=== PATIENT | female | born 1940 ===

== ENCOUNTER 2024-01-19 09:08 | Observation (INO) | payer MEDICARE, OTHER ==
[2024-01-19 09:20] VITALS: BMI 39.0
[2024-01-19 10:47] LABS: BASO % 0.9 % (0-2.0); EOS % 2.2 % (0-4.5); HEMATOCRIT 36.8 % (32.4-45.2); HEMOGLOBIN 11.8 GM/dL (10.7-15.3); LYMPH % 20.2 % (8-40); MCH 26.5 pg (25.7-33.7); MCHC 32.1 g/dl (32.0-36.0); MEAN CELL VOLUME 82.5 fl (80-96); MEAN PLT VOLUME 7.4 fl (7.5-11.1); MONO % 6.4 % (3.8-10.2); NEUT % 70.3 % (42.8-82.8); PLATELET COUNT 506 10^3/uL (134-434); RBC 4.46 M/mm3 (3.60-5.2); RDW 16.3 % (11.6-15.6); WHITE BLOOD COUNT 12.5 K/mm3 (4.0-10.0)
[2024-01-19 10:52] LABS: INR 1.06 (0.83-1.09)
[2024-01-19 10:55] LABS: ACTIVATED PTT 34.1 SECONDS (25.2-36.5)
[2024-01-19 11:10] LABS: ALBUMIN 3.3 g/dl (3.4-5.0); BLOOD UREA NITROGEN 13.7 mg/dL (7-18)
[2024-01-19 11:13] LABS: CREATININE 0.7 mg/dL (0.55-1.3)
[2024-01-19 11:16] LABS: BILIRUBIN,TOTAL 0.4 mg/dL (0.2-1); TOT PROT 7.7 g/dl (6.4-8.2)
[2024-01-19 11:26] LABS: EPI CELLS >36 /uL (0-25.1); HYALINE CASTS 1 /uL (0-3.1); PH,URINE 7.5 (5.0-8.0); URINE APPEARANCE CLOUDY; URINE BACTERIA 477 /uL (0-1359); URINE BILIRUBIN NEGATIVE (NEGATIVE); URINE COLOR YELLOW; URINE GLUCOSE (UA) NEGATIVE (NEGATIVE); URINE KETONE NEGATIVE (NEGATIVE); URINE LEUK ESTERASE TRACE (NEGATIVE); URINE NITRITE NEGATIVE (NEGATIVE); URINE PROTEIN NEGATIVE (NEGATIVE); URINE UROBILINOGEN 0.2 mg/dL (0.2-1.0); URINE WBC 32 /uL (0-25.8)
[2024-01-19 11:28] LABS: URINE RBC 22.3 /uL (0-23.9)
[2024-01-19] MEDS ORDERED: ACETAMINOPHEN 325 MG TABLET (FP) PO PRN (13:11)
[2024-01-19] MEDS ORDERED: CEFTRIAXONE 1 GM/50 ML BAG ONE (13:47)
[2024-01-19] MEDS: CEFTRIAXONE 1 GM in DEXTROSE 5%-WATER - 50 ML IVPB SCH (13:54)
[2024-01-19] MEDS: MEMANTINE HCL 5 MG TABLET (UD) PO SCH (21:37)
[2024-01-19] MEDS: DONEPEZIL HCL 5 MG TABLET (FP) PO SCH (21:37)
[2024-01-19] MEDS: ATORVASTATIN CA 10 MG TABLET (FP) PO SCH (21:37)
[2024-01-19] MEDS: HEPARIN NA (PORCINE) 5,000 UNITS/ML 1ML VIAL SQ SCH (21:37)
[2024-01-20 08:24] LABS: POTASSIUM 4.1 mmol/L (3.5-5.1)
[2024-01-20 08:27] LABS: CALCIUM 8.6 mg/dL (8.5-10.1)
[2024-01-20 08:28] LABS: BLOOD UREA NITROGEN 8.9 mg/dL (7-18)
[2024-01-20 08:30] LABS: CREATININE 0.6 mg/dL (0.55-1.3)
[2024-01-20 08:32] LABS: BILIRUBIN,TOTAL 0.4 mg/dL (0.2-1)
[2024-01-20 08:35] LABS: BASO % 0.7 % (0-2.0); EOS % 2.4 % (0-4.5); HEMATOCRIT 35.8 % (32.4-45.2); HEMOGLOBIN 11.6 GM/dL (10.7-15.3); LYMPH % 14.7 % (8-40); MCH 26.7 pg (25.7-33.7); MCHC 32.4 g/dl (32.0-36.0); MEAN CELL VOLUME 82.4 fl (80-96); MEAN PLT VOLUME 7.7 fl (7.5-11.1); MONO % 5.4 % (3.8-10.2); NEUT % 76.8 % (42.8-82.8); PLATELET COUNT 489 10^3/uL (134-434); RBC 4.34 M/mm3 (3.60-5.2); RDW 15.4 % (11.6-15.6); WHITE BLOOD COUNT 11.4 K/mm3 (4.0-10.0)
[2024-01-20] MEDS ORDERED: ACETAMINOPHEN 325 MG TABLET (FP) PO PRN (08:41)
[2024-01-20] MEDS: ESCITALOPRAM OXALATE 10 MG TABLET PO SCH (10:25)
[2024-01-20] MEDS: CHOLECALCIFEROL (VIT D3) 1,000 UNIT (25 MCG) TABLET PO SCH (10:25)
[2024-01-20] MEDS: CALCIUM 500MG/VIT-D 200 UNITS COMBO TABLET (FP) PO SCH (10:25)
[2024-01-20] MEDS: PANTOPRAZOLE 40 MG TABLET PO SCH (10:25)
[2024-01-20] MEDS: LOSARTAN POTASSIUM 50 MG TABLET PO SCH (10:25)
[2024-01-20] MEDS: VENLAFAXINE HCL 37.5 MG E.R. CAPSULE PO SCH (10:26)
[2024-01-20] MEDS: MELATONIN 5 MG TABLETS PO PRN (21:30)
[2024-01-23 08:02] LABS: HEMATOCRIT 36.7 % (32.4-45.2); HEMOGLOBIN 12.1 GM/dL (10.7-15.3); MCH 27.4 pg (25.7-33.7); MEAN CELL VOLUME 83.2 fl (80-96); MEAN PLT VOLUME 7.6 fl (7.5-11.1); PLATELET COUNT 452 10^3/uL (134-434); RBC 4.41 M/mm3 (3.60-5.2); RDW 15.7 % (11.6-15.6); WHITE BLOOD COUNT 16.3 K/mm3 (4.0-10.0)
[2024-01-23 08:14] LABS: POTASSIUM 4.2 mmol/L (3.5-5.1)
[2024-01-23 08:15] LABS: CALCIUM 9.2 mg/dL (8.5-10.1)
[2024-01-23 08:16] LABS: BLOOD UREA NITROGEN 18.3 mg/dL (7-18); MAGNESIUM 2.2 mg/dL (1.8-2.4)
[2024-01-23 08:19] LABS: CREATININE 0.7 mg/dL (0.55-1.3); PHOSPHOROUS 4.2 mg/dL (2.5-4.9)
[2024-01-23] MEDS ORDERED: cefTRIAXone SODIUM 1 GM VIAL ONE (09:26)
[2024-01-24 10:54] LABS: BASO % 0.3 % (0-2.0); EOS % 1.1 % (0-4.5); HEMATOCRIT 36.5 % (32.4-45.2); HEMOGLOBIN 11.9 GM/dL (10.7-15.3); LYMPH % 17.5 % (8-40); MCHC 32.7 g/dl (32.0-36.0); MEAN CELL VOLUME 82.7 fl (80-96); MEAN PLT VOLUME 7.6 fl (7.5-11.1); NEUT % 71.1 % (42.8-82.8); PLATELET COUNT 481 10^3/uL (134-434); RBC 4.41 M/mm3 (3.60-5.2); RDW 15.5 % (11.6-15.6); WHITE BLOOD COUNT 16.1 K/mm3 (4.0-10.0)
[2024-01-24 17:14] LABS: HIV INTERPRETATION NEGATIVE (NEGATIVE)
[2024-01-24] MEDS: NYSTATIN POWDER 100,000 UNITS/GM - 15 GM TOPICAL POWDER TP SCH (22:00)
[2024-01-25 06:36] LABS: BASO % 0.6 % (0-2.0); EOS % 1.9 % (0-4.5); HEMOGLOBIN 11.4 GM/dL (10.7-15.3); LYMPH % 16.1 % (8-40); MCH 27.1 pg (25.7-33.7); MCHC 32.5 g/dl (32.0-36.0); MEAN CELL VOLUME 83.5 fl (80-96); MEAN PLT VOLUME 7.6 fl (7.5-11.1); MONO % 9.8 % (3.8-10.2); NEUT % 71.6 % (42.8-82.8); PLATELET COUNT 455 10^3/uL (134-434); RBC 4.19 M/mm3 (3.60-5.2); RDW 15.3 % (11.6-15.6); WHITE BLOOD COUNT 14.5 K/mm3 (4.0-10.0)
[2024-01-25 06:52] LABS: POTASSIUM 3.8 mmol/L (3.5-5.1)
[2024-01-25 06:56] LABS: BLOOD UREA NITROGEN 15.5 mg/dL (7-18); CALCIUM 8.8 mg/dL (8.5-10.1)
[2024-01-25 06:57] LABS: MAGNESIUM 2.1 mg/dL (1.8-2.4)
[2024-01-25 07:00] LABS: CREATININE 0.7 mg/dL (0.55-1.3); PHOSPHOROUS 3.6 mg/dL (2.5-4.9)
[2024-01-25 07:01] LABS: BILIRUBIN,TOTAL 0.5 mg/dL (0.2-1)
[2024-01-25] MEDS ORDERED: ACETAMINOPHEN 325 MG TABLET (FP) PO PRN (16:53)
[2024-01-25] MEDS: DONEPEZIL HCL 5 MG TABLET (FP) PO SCH (21:22)
[2024-01-25] MEDS: MEMANTINE HCL 5 MG TABLET (UD) PO SCH (21:22)
[2024-01-25] MEDS: ATORVASTATIN CA 10 MG TABLET (FP) PO SCH (21:23)
[2024-01-25] MEDS: NYSTATIN POWDER 100,000 UNITS/GM - 15 GM TOPICAL POWDER TP SCH (21:23)
[2024-01-25] MEDS: MELATONIN 5 MG TABLETS PO PRN (21:23)
[2024-01-25] MEDS: HEPARIN NA (PORCINE) 5,000 UNITS/ML 1ML VIAL SQ SCH (21:23)
[2024-01-25 21:50] LABS: MAGNESIUM 2.2 mg/dL (1.8-2.4)
[2024-01-25 21:54] LABS: PHOSPHOROUS 3.3 mg/dL (2.5-4.9)
[2024-01-26 08:37] LABS: BASO % 0.6 % (0-2.0); EOS % 1.7 % (0-4.5); HEMATOCRIT 34.8 % (32.4-45.2); HEMOGLOBIN 11.1 GM/dL (10.7-15.3); LYMPH % 18.1 % (8-40); MCH 26.5 pg (25.7-33.7); MCHC 31.9 g/dl (32.0-36.0); MEAN CELL VOLUME 82.9 fl (80-96); MEAN PLT VOLUME 7.8 fl (7.5-11.1); MONO % 8.8 % (3.8-10.2); NEUT % 70.8 % (42.8-82.8); PLATELET COUNT 446 10^3/uL (134-434); RDW 15.5 % (11.6-15.6); WHITE BLOOD COUNT 12.9 K/mm3 (4.0-10.0)
[2024-01-26 08:51] LABS: POTASSIUM 4.1 mmol/L (3.5-5.1)
[2024-01-26 08:57] LABS: ALBUMIN 2.8 g/dl (3.4-5.0); CALCIUM 8.8 mg/dL (8.5-10.1)
[2024-01-26 09:00] LABS: CREATININE 0.7 mg/dL (0.55-1.3)
[2024-01-26 09:02] LABS: BILIRUBIN,TOTAL 0.4 mg/dL (0.2-1); TOT PROT 6.9 g/dl (6.4-8.2)
[2024-01-26] MEDS: ESCITALOPRAM OXALATE 10 MG TABLET PO SCH (10:33)
[2024-01-26] MEDS: VENLAFAXINE HCL 37.5 MG E.R. CAPSULE PO SCH (10:34)
[2024-01-26] MEDS: CHOLECALCIFEROL (VIT D3) 1,000 UNIT (25 MCG) TABLET PO SCH (10:34)
[2024-01-26] MEDS: LOSARTAN POTASSIUM 50 MG TABLET PO SCH (10:34)
[2024-01-26] MEDS: CALCIUM 500MG/VIT-D 200 UNITS COMBO TABLET (FP) PO SCH (10:34)
[2024-01-26] MEDS: PANTOPRAZOLE 40 MG TABLET PO SCH (10:34)
[2024-01-27 06:28] VITALS: RESP 18
[2024-01-27 09:50] LABS: EOS % 2.8 % (0-4.5); HEMATOCRIT 32.5 % (32.4-45.2); HEMOGLOBIN 10.5 GM/dL (10.7-15.3); LYMPH % 22.3 % (8-40); MCH 26.9 pg (25.7-33.7); MCHC 32.4 g/dl (32.0-36.0); MEAN CELL VOLUME 83.2 fl (80-96); MEAN PLT VOLUME 7.8 fl (7.5-11.1); MONO % 8.2 % (3.8-10.2); NEUT % 65.7 % (42.8-82.8); PLATELET COUNT 486 10^3/uL (134-434); RBC 3.91 M/mm3 (3.60-5.2); RDW 15.4 % (11.6-15.6); WHITE BLOOD COUNT 12.7 K/mm3 (4.0-10.0)
[2024-01-27 10:33] LABS: POTASSIUM 4.1 mmol/L (3.5-5.1)
[2024-01-27 10:40] LABS: ALBUMIN 2.7 g/dl (3.4-5.0); CALCIUM 8.6 mg/dL (8.5-10.1)
[2024-01-27 10:43] LABS: CREATININE 0.6 mg/dL (0.55-1.3)
[2024-01-27 10:45] LABS: BILIRUBIN,TOTAL 0.3 mg/dL (0.2-1); TOT PROT 6.8 g/dl (6.4-8.2)
[2024-01-27] MEDS: ENOXAPARIN NA (PORCINE) 40 MG/0.4 ML DISP.SYRIN SQ SCH (11:09)
[2024-01-27 17:46] VITALS: BP 121/64; PULSE 78; TEMP 99.3
== END 2024-01-27 17:43 ==
LOC: JER 09:08 → JERBED 12:02 → J4S 15:26 → J5S 01-25 16:50
PROVIDERS: ADMIT Internal Medicine
PROC: 0T9B70Z Drainage of Bladder with Drainage Device, Via Natural or Artificial Opening (ICD-10-PCS; principal; 2024-01-19)
PROC: 3E03329 Introduction of Other Anti-infective into Peripheral Vein, Percutaneous Approach (ICD-10-PCS; 2024-01-19)
PROC: 3E023GC Introduction of Other Therapeutic Substance into Muscle, Percutaneous Approach (ICD-10-PCS; 2024-01-19)
DX: N39.0 Urinary tract infection, site not specified (principal); R33.9 Retention of urine, unspecified; G93.41 Metabolic encephalopathy; R00.1 Bradycardia, unspecified; F03.C0 Unspecified dementia, severe, without behavioral disturbance, psychotic disturbance, mood disturbance, and anxiety; X58.XXXA Exposure to other specified factors, initial encounter; Y93.89 Activity, other specified; Y92.098 Other place in other non-institutional residence as the place of occurrence of the external cause; I10 Essential (primary) hypertension; E78.5 Hyperlipidemia, unspecified; N63.10 Unspecified lump in the right breast, unspecified quadrant; F32.A Depression, unspecified
CPT/HCPCS: 0241U-QW; 36415; 51702; 70450-TC; 71045-TC-FY; 76775-TC; 80048; 80053; 81003; 82550; 82962; 83735; 84100; 84443; 84484; 85025; 85027; 85610; 85730; 86705; 86707; 86803; 86850; 86900; 86901; 87040; 87086; 87340; 87350; 87389; 87517; 93005; 93010; 93306-TC; 93880-TC; 95816; 96365; 96366; 97116-GP; 97161-GP; 99285-25; G0378; J1644

== ENCOUNTER 2024-04-13 14:59 | Observation (INO) | payer OTHER ==
[2024-04-13 17:50] LABS: BASO % 0.7 % (0-2.0); EOS % 0.6 % (0-4.5); HEMATOCRIT 38.1 % (32.4-45.2); HEMOGLOBIN 11.8 GM/dL (10.7-15.3); LYMPH % 16.5 % (8-40); MCH 26.3 pg (25.7-33.7); MCHC 30.9 g/dl (32.0-36.0); MEAN CELL VOLUME 85.1 fl (80-96); MEAN PLT VOLUME 7.6 fl (7.5-11.1); NEUT % 74.2 % (42.8-82.8); PLATELET COUNT 424 10^3/uL (134-434); RBC 4.48 M/mm3 (3.60-5.2); WHITE BLOOD COUNT 14.2 K/mm3 (4.0-10.0)
[2024-04-13 17:59] LABS: POTASSIUM 5.1 mmol/L (3.5-5.1)
[2024-04-13 18:01] LABS: CALCIUM 8.9 mg/dL (8.5-10.1)
[2024-04-13 18:02] LABS: ALBUMIN 3.2 g/dl (3.4-5.0); BLOOD UREA NITROGEN 13.5 mg/dL (7-18); MAGNESIUM 2.1 mg/dL (1.8-2.4)
[2024-04-13 18:05] LABS: CREATININE 0.6 mg/dL (0.55-1.3)
[2024-04-13 18:06] LABS: BILIRUBIN,TOTAL 0.7 mg/dL (0.2-1); TOT PROT 7.5 g/dl (6.4-8.2)
[2024-04-13 19:20] LABS: EPI CELLS >36 /uL (0-25.1); HYALINE CASTS 2 /uL (0-3.1); PH,URINE 7.5 (5.0-8.0); URINE APPEARANCE CLOUDY; URINE BACTERIA 3920 /uL (0-1359); URINE BILIRUBIN NEGATIVE (NEGATIVE); URINE COLOR YELLOW; URINE GLUCOSE (UA) NEGATIVE (NEGATIVE); URINE KETONE NEGATIVE (NEGATIVE); URINE LEUK ESTERASE 1+ (NEGATIVE); URINE NITRITE NEGATIVE (NEGATIVE); URINE PROTEIN TRACE (NEGATIVE); URINE WBC 61 /uL (0-25.8)
[2024-04-13 20:26] LABS: URINE RBC 48.6 /uL (0-23.9)
[2024-04-13] MEDS ORDERED: CEFTRIAXONE 1 GM/50 ML BAG ONE (21:08)
[2024-04-13] MEDS ORDERED: ACETAMINOPHEN INJECTION 100 ML ONE (21:08)
[2024-04-13] MEDS: CEFTRIAXONE 1,000 MG in DEXTROSE 5%-WATER - 50 ML IVPB ONE (22:11)
[2024-04-13] MEDS: ACETAMINOPHEN 1000 MG/100 ML BAG IVPB ONE (22:12)
[2024-04-13] MEDS: REMDESIVIR 200 MG in SODIUM CHLORIDE 250 ML IVPB ONE (22:59)
[2024-04-14] MEDS: LOSARTAN POTASSIUM 50 MG TABLET PO SCH (09:58)
[2024-04-14] MEDS: VENLAFAXINE HCL 37.5 MG E.R. CAPSULE PO SCH (09:58)
[2024-04-14] MEDS: MEMANTINE HCL 5 MG TABLET (UD) PO SCH (09:58)
[2024-04-14] MEDS: LORATADINE 10 MG TABLET PO SCH (09:58)
[2024-04-14] MEDS: ASPIRIN 81 MG CHEWABLE TABLETS PO SCH (09:58)
[2024-04-14] MEDS: PANTOPRAZOLE 40 MG TABLET PO SCH (09:58)
[2024-04-14] MEDS: CHOLECALCIFEROL (VIT D3) 1,000 UNIT (25 MCG) TABLET PO SCH (09:59)
[2024-04-14] MEDS ORDERED: CALCIUM (OYSTER SHELL) 500 MG TABLET (FP) PO SCH (10:00)
[2024-04-14] MEDS ORDERED: ENOXAPARIN NA (PORCINE) 40 MG/0.4 ML DISP.SYRIN SQ ONE (10:04)
[2024-04-14] MEDS ORDERED: CEFTRIAXONE 1 GM/50 ML BAG ONE (10:04)
[2024-04-14] MEDS: CEFTRIAXONE 1 GM in DEXTROSE 5%-WATER - 50 ML IVPB SCH (10:05)
[2024-04-14] MEDS: ENOXAPARIN NA (PORCINE) 40 MG/0.4 ML DISP.SYRIN SQ SCH (10:25)
[2024-04-14] MEDS: LACTATED RINGERS SOLUTION 1,000 ML/1,000 ML INFUS.BAG IV SCH (10:25)
[2024-04-14 13:24] LABS: HEMOGLOBIN 12.4 GM/dL (10.7-15.3); MCH 26.7 pg (25.7-33.7); MCHC 31.9 g/dl (32.0-36.0); MEAN CELL VOLUME 83.6 fl (80-96); MEAN PLT VOLUME 7.5 fl (7.5-11.1); PLATELET COUNT 438 10^3/uL (134-434); RBC 4.66 M/mm3 (3.60-5.2); RDW 16.8 % (11.6-15.6); WHITE BLOOD COUNT 11.9 K/mm3 (4.0-10.0)
[2024-04-14 14:02] LABS: POTASSIUM 4.2 mmol/L (3.5-5.1)
[2024-04-14 14:06] LABS: BLOOD UREA NITROGEN 10.6 mg/dL (7-18); CALCIUM 8.8 mg/dL (8.5-10.1)
[2024-04-14 14:09] LABS: CREATININE 0.5 mg/dL (0.55-1.3)
[2024-04-14 14:11] LABS: BILIRUBIN,TOTAL 0.5 mg/dL (0.2-1); TOT PROT 7.5 g/dl (6.4-8.2)
[2024-04-14] MEDS ORDERED: ATORVASTATIN CA 10 MG TABLET (FP) ONE (23:03)
[2024-04-14] MEDS ORDERED: DONEPEZIL HCL 5 MG TABLET (FP) ONE (23:03)
[2024-04-14] MEDS: ATORVASTATIN CA 10 MG TABLET (FP) PO SCH (23:12)
[2024-04-14] MEDS: DONEPEZIL HCL 5 MG TABLET (FP) PO SCH (23:12)
[2024-04-15 04:46] VITALS: BMI 37.3
[2024-04-15 10:51] LABS: HEMATOCRIT 34.5 % (32.4-45.2); HEMOGLOBIN 11.4 GM/dL (10.7-15.3); MCH 27.3 pg (25.7-33.7); MEAN CELL VOLUME 82.7 fl (80-96); MEAN PLT VOLUME 7.8 fl (7.5-11.1); PLATELET COUNT 428 10^3/uL (134-434); RBC 4.17 M/mm3 (3.60-5.2); RDW 16.9 % (11.6-15.6)
[2024-04-15 11:12] LABS: POTASSIUM 3.5 mmol/L (3.5-5.1)
[2024-04-15 11:13] LABS: CALCIUM 8.7 mg/dL (8.5-10.1)
[2024-04-15 11:14] LABS: BLOOD UREA NITROGEN 12.2 mg/dL (7-18); MAGNESIUM 2.2 mg/dL (1.8-2.4)
[2024-04-15 11:17] LABS: CREATININE 0.6 mg/dL (0.55-1.3); PHOSPHOROUS 4.4 mg/dL (2.5-4.9)
[2024-04-15] MEDS: REMDESIVIR 100 MG in SODIUM CHLORIDE 250 ML IVPB SCH (12:52)
[2024-04-17] MEDS ORDERED: DRONABINOL 2.5 MG CAPSULE PO SCH (10:15)
[2024-04-17 15:41] VITALS: RESP 18
[2024-04-18 16:35] VITALS: BP 133/76; PULSE 69; TEMP 99
== END 2024-04-18 19:01 ==
LOC: JER 14:59 → JERBED 20:48 → J6S 04-15 04:20
PROVIDERS: ADMIT Student in an Organized Health Care Education/Training Program; ATTEND Internal Medicine
PROC: 3E033NZ Introduction of Analgesics, Hypnotics, Sedatives into Peripheral Vein, Percutaneous Approach (ICD-10-PCS; principal; 2024-04-13)
PROC: 3E03329 Introduction of Other Anti-infective into Peripheral Vein, Percutaneous Approach (ICD-10-PCS; 2024-04-13)
PROC: 3E023GC Introduction of Other Therapeutic Substance into Muscle, Percutaneous Approach (ICD-10-PCS; 2024-04-13)
PROC: 3E0337Z Introduction of Electrolytic and Water Balance Substance into Peripheral Vein, Percutaneous Approach (ICD-10-PCS; 2024-04-13)
DX: U07.1 COVID-19 (principal); N39.0 Urinary tract infection, site not specified; G93.41 Metabolic encephalopathy; I10 Essential (primary) hypertension; E78.5 Hyperlipidemia, unspecified; F03.90 Unspecified dementia, unspecified severity, without behavioral disturbance, psychotic disturbance, mood disturbance, and anxiety
CPT/HCPCS: 0241U-QW; 36415; 70450-TC; 71045-TC-FY; 80048; 80053; 81003; 83735; 84100; 84484; 85025; 85027; 85651; 86140; 87086; 87186; 93005; 93010; 96361; 96365; 96366; 96367; 96368; 96372; 96374; 96375; 97116-GP; 97161-GP; 99285-25; G0378; J0131; J0248